=== PATIENT | female | born 1955 | race Caucasian/White ===

== ENCOUNTER 2016-07-16 18:00 | Emergency (ER) | payer OTHER | END 2016-07-16 18:21 | disposition home or self-care (01) | LOC: ER 18:00 | PROC: 2Y41X5Z Packing of Nasal Region using Packing Material (ICD-10-PCS; principal; 2016-07-16) | DX: R04.0 Epistaxis (principal); Z88.6 Allergy status to analgesic agent | CPT/HCPCS: 99283 ==